=== PATIENT | female | born 1975 | race Caucasian/White ===

== ENCOUNTER 2017-12-29 19:48 | Emergency (ER) | payer BC, MEDICAID, OTHER, SELFPAY ==
[~2017-12-29] VITALS: Ht 162.6 cm; Wt 105.3 kg
[2017-12-29 20:42] LABS: HCT (SEDRATE) 45.2 % (34.6-47.8)
[2017-12-29 20:44] LABS: BASOPHILS # (AUTO) 0.05 x10^3/uL (0-0.1); BASOPHILS % (AUTO) 1 % (0-1); EOSINOPHILS # (AUTO) 0.18 x10^3/uL (0-0.4); EOSINOPHILS % (AUTO) 2 % (1-7); LYMPHOCYTES # (AUTO) 2.42 x10^3/uL (1-3.4); LYMPHOCYTES % (AUTO) 22 % (22-44); MD NO; MEAN CORPUSCULAR HEMOGLOBIN 30.4 pg (27.0-34.8); MEAN CORPUSCULAR HGB CONC 34.2 g/dL (32.4-35.8); MEAN CORPUSCULAR VOLUME 88.7 fL (80-100); MEAN PLATELET VOLUME 8.9 fL (7.4-10.4); MONOCYTES # (AUTO) 0.39 x10^3/uL (0.2-0.8); MONOCYTES % (AUTO) 3 % (2-9); NEUTROPHILS % (AUTO) 73 % (42-75); PLATELET COUNT 223 x10^3/uL (130-400); RED BLOOD COUNT 5.12 x10^6/uL (3.82-5.3); RED CELL DISTRIBUTION WIDTH 13.5 % (9.6-15.2)
[2017-12-29 22:04] VITALS: BP 153/94
== END 2017-12-29 22:06 | disposition home or self-care (01) ==
LOC: ED 21:28
DX: M10.021 Idiopathic gout, right elbow (principal)
CPT/HCPCS: 29105; 36415; 84550; 85025; 85651; 99285

== ENCOUNTER 2021-03-27 17:27 | Emergency (ER) | payer SELFPAY ==
[~2021-03-27] VITALS: Ht 162.6 cm; Wt 107.9 kg
[2021-03-27 18:30] LABS: BASOPHILS % (AUTO) 1 % (0-1); EOSINOPHILS % (AUTO) 3 % (1-7); LYMPHOCYTES % (AUTO) 23 % (22-44); MEAN CORPUSCULAR HEMOGLOBIN 21.7 pg (27.0-34.8); MEAN CORPUSCULAR HGB CONC 32.4 g/dL (32.4-35.8); MEAN PLATELET VOLUME 7.9 fL (7.4-10.4); MONOCYTES % (AUTO) 5 % (2-9); NEUTROPHILS % (AUTO) 68 % (42-75); PLATELET COUNT 248 x10^3/uL (130-400); RED BLOOD COUNT 2.71 x10^6/uL (3.82-5.3); RED CELL DISTRIBUTION WIDTH 19.1 % (9.6-15.2)
[2021-03-27 18:42] LABS: ALANINE AMINOTRANSFERASE 27 U/L (12-78); ALBUMIN 3.1 g/dL (3.4-5.0); ANION GAP 3 mmol/L (5-15); CALCIUM 8.1 mg/dL (8.5-10.1); CHLORIDE 111 mmol/L (98-107); CREATININE 0.79 mg/dL (0.55-1.02)
[2021-03-27 18:47] LABS: ALKALINE PHOSPHATASE 76 U/L (45-117); BILIRUBIN,TOTAL 0.3 mg/dL (0.2-1.0); TOTAL PROTEIN 6.8 g/dL (6.4-8.2); TROPONIN I < 0.015 ng/mL (0.000-0.045)
--- NOTE | 2021-03-27 19:00 | NUR ---
ENROLLMENT MANAGER: PT. IN US AT THIS TIME. US TECH TO TAKE PT. TO ED 14 WHEN US COMPLETED.
--- NOTE | 2021-03-27 19:01 | NUR ---
PT OFF UNIT IN IMAGING
[2021-03-27 19:11] LABS: ANISOCYTOSIS 1+; MICROCYTOSIS 2+
[2021-03-27 19:12] LABS: <PLATELET ESTIMATE> INCREASED; HYPOCHROMIA 2+; OVALOCYTES 1+; POLYCHROMASIA 1+
[2021-03-27 19:13] LABS: SMALL PLATELETS 1+
[2021-03-27 19:17] LABS: TEAR DROPS 1+
--- NOTE | 2021-03-27 19:47 | NUR ---
Patient is resting comfortably in bed. Bed in lowest, rails engaged, call light on lap. Vital Signs within normal limits. WCTM. ERMD AT BEDSIDE. NADN AT MOMENT. DAUGHTER AT BEDSIDE
[2021-03-27 19:57] LABS: MICROSCOPIC AUTO
[2021-03-27] MEDS ORDERED: MEDROXYPROGESTERONE ACETATE 5 MG TABLET PO ONE (20:00)
[2021-03-27] MEDS ORDERED: TRANEXAMIC ACID 1,500 MG in SODIUM CHLORIDE 0.9% 100 ML IV ONE (20:00)
--- NOTE | 2021-03-27 20:31 | NUR ---
AWAITING MEDICATIONS FROM PHARMACY. YELLOW SLIP SENT EARLIER
[2021-03-27] MEDS ORDERED: ACETAMINOPHEN 500 MG TABLET ONE (20:44)
[2021-03-27] MEDS ORDERED: ACETAMINOPHEN 500 MG TABLET PO ONE (21:00)
--- NOTE | 2021-03-27 21:05 | NUR ---
PURPLE SLIP SENT TO BLOOD BANK
[2021-03-27 21:35] VITALS: BP 150/69
--- NOTE | 2021-03-27 21:37 | NUR ---
BLOOD TRANSFUSION INITITAED. CONSENT SIGNED IN CHARTS Addendum: 03/27/21 at 2137 by [email or web address] VSS. NADN. JACOBSEN LIGHT ON LAP.
[2021-03-27 21:50] VITALS: BP 126/72
[2021-03-27 22:03] VITALS: BP 128/72
--- NOTE | 2021-03-27 22:15 | NUR ---
LATE ENTRY DUE TO PT CARE. PT AMBULATED TO BATHROOM WITH STEADY GAIT PRIOR TO BLOOD TRANSFUSION. PT URINATED AND STATED SHE HAD MORE BLOOD AND BLOOD CLOTS COME OUT. PT CURRENTLY IN BED. VSS. FAY
[2021-03-27 22:28] VITALS: BP 123/72
[2021-03-27 23:01] VITALS: BP 126/74
--- NOTE | 2021-03-27 23:06 | NUR ---
TRANSFUSION COMPLETED. NO ADVERSE REACTIONS NOTED. VSS, NADN
[2021-03-27 23:19] VITALS: BP 130/67
--- NOTE | 2021-03-27 23:38 | NUR ---
Patient/Caregiver given discharge instructions and they have confirmed that they understand the instructions. Patient ambulatory with steady gait. NAD, all questions answered appropriately, denies additional needs at this time. No personal belongings left in room after discharge.
== END 2021-03-27 23:40 | disposition home or self-care (01) ==
LOC: ED 18:00
DX: R07.89 Other chest pain (principal); D50.0 Iron deficiency anemia secondary to blood loss (chronic); N92.0 Excessive and frequent menstruation with regular cycle; F17.210 Nicotine dependence, cigarettes, uncomplicated
CPT/HCPCS: 36415; 36430; 71045; 76830; 80053; 81001; 84484; 84703; 85025; 86850; 86900; 86923; 93005; 96365; 99285; 99406; P9016